=== PATIENT | female | born 1990 | race Caucasian/White ===

== ENCOUNTER 2016-05-29 08:31 | Inpatient (IN) | payer MEDICARE ==
[~2016-05-29] VITALS: Ht 167.6 cm; Wt 79.4 kg
[2016-05-29] MEDS: NACL 0.9% 1,000 ML IV SCH ×2 (08:30→17:42)
[2016-05-29 08:31] VITALS: BP_SYST 136
[2016-05-29] MEDS ORDERED: NACL 0.9% 1,000 ML IV ONE ×2 (08:49→10:30)
[2016-05-29] MEDS ORDERED: KETOROLAC TROMETHAMINE 30 MG VIAL IVP ONE (09:00)
[2016-05-29 09:07] LABS: BILIRUBIN,URINE NEGATIVE (NEGATIVE); BLOOD, URINE 1+ (NEGATIVE); CLARITY/URINE CLEAR (CLEAR); COLOR,URINE YELLOW (YELLOW); GLUCOSE,URINE NEGATIVE (NEGATIVE); KETONES,URINE NEGATIVE (NEGATIVE); LEUKOCYTE ESTERASE ,URINE NEGATIVE (NEGATIVE); NITRITE, URINE NEGATIVE (NEGATIVE); PH,URINE 6.5 (5.0-8.0); PROTEIN URINE NEGATIVE (NEGATIVE)
[2016-05-29 09:16] LABS: BACTERIA,URINE FEW /HPF (None Seen); RBC,URINE 0-3 /HPF (0-3); WBC,URINE 0-3 /HPF (0-3); YEAST,URINE None Seen /HPF (None Seen)
[2016-05-29 09:24] LABS: BASOPHILS # (AUTO) 0.3 K/uL (0.0-0.2); BASOPHILS % (AUTO) 2.6 % (0.0-2.0); EOSINOPHILS # (AUTO) 0.1 K/uL (0.0-0.4); EOSINOPHILS % (AUTO) 0.6 % (0.0-4.0); HEMATOCRIT 37.8 % (36-48); LYMPHOCYTES # (AUTO) 1.7 K/uL (1.0-5.5); LYMPHOCYTES % (AUTO) 14.9 % (20.5-51.5); MEAN CORPUSCULAR HEMOGLOBIN 31 pg (27-31); MEAN CORPUSCULAR HGB CONC 34 % (32-36); MEAN CORPUSCULAR VOLUME 90 fL (79.0-98.0); MONOCYTES # (AUTO) 0.6 K/uL (0.0-1.0); MONOCYTES % (AUTO) 5.1 % (1.7-9.3); NEUTROPHILS # (AUTO) 8.8 K/uL (1.8-7.7); NEUTROPHILS % (AUTO) 76.8 % (40.0-70.0); PLATELET COUNT (AUTO) 150 K/uL (130-430); RED BLOOD CELL COUNT(AUTO) 4.18 MIL/uL (4.2-6.2); RED CELL DISTRIBUTION WIDTH 12.2 % (9.0-15.0); WHITE BLOOD COUNT (AUTO) 11.5 K/uL (4.8-10.8)
[2016-05-29 09:38] LABS: PROTHROMBIN TIME 10.4 SECS (9.5-12.5)
[2016-05-29 09:45] LABS: CALCIUM 8.8 mg/dL (8.4-11.0); CREATININE 0.75 mg/dL (0.55-1.30); POTASSIUM 3.2 mmol/L (3.5-5.1); TOTAL BILIRUBIN 0.5 mg/dL (0.0-1.0); TOTAL PROTEIN, SERUM 7.7 g/dL (6.4-8.3)
[2016-05-29 09:46] LABS: ALBUMIN 3.9 g/dL (3.4-4.8)
[2016-05-29] MEDS ORDERED: LEVO125T8 PO (10:00)
[2016-05-29] MEDS ORDERED: ATEN-41 PO (10:00)
[2016-05-29] MEDS ORDERED: LISI2.5T48 PO (10:00)
[2016-05-29] MEDS ORDERED: FLUO40CA8 PO (10:00)
[2016-05-29] MEDS ORDERED: BUPR100T13 PO (10:00)
[2016-05-29] MEDS ORDERED: KCL 10 mEq in 50 mL (PREMIX) 50 ML IV ONE (10:00)
[2016-05-29] MEDS ORDERED: LORA-258 PO (10:00)
[2016-05-29] MEDS ORDERED: cefOXitin 1 GM IVPB PREMIX 50 ML IV ONE ×2 (10:30→11:31)
[2016-05-29] MEDS ORDERED: ONDANSETRON HCL 4 MG/2 ML VIAL IVP PRN ×2 (12:15→12:30)
[2016-05-29] MEDS ORDERED: HYDROmorphone 2 MG/ML VIAL IVP PRN ×3 (12:15→12:30)
[2016-05-29] MEDS ORDERED: LR 1,000 ML IV SCH (12:17)
[2016-05-29] MEDS ORDERED: KETOROLAC TROMETHAMINE 30 MG VIAL IVP PRN (12:30)
[2016-05-29] MEDS ORDERED: MEPERIDINE HCL/PF 25 MG/ML DISP.SYRIN IVP PRN ×2 (12:30)
[2016-05-29] MEDS ORDERED: HYDROmorphone 1 MG INJ. 1 MG/ML AMPUL IVP PRN (12:30)
[2016-05-29] MEDS ORDERED: HYDROmorphone 1 MG INJ. 1 MG/ML AMPUL ONE (13:21)
[2016-05-29] MEDS ORDERED: fentaNYL CITRATE 250 MCG/5 ML AMP ONE (14:00)
[2016-05-29] MEDS ORDERED: NS 1000 ML BAG IV ONE (14:00)
[2016-05-29] MEDS ORDERED: PROPOFOL 200MG/ 20ML VIAL (DIPRIVAN) IV ONE (14:00)
[2016-05-29] MEDS ORDERED: LR 1,000 ML IV.SOLN IV ONE (14:00)
[2016-05-29] MEDS ORDERED: KETOROLAC TROMETHAMINE 30 MG VIAL ONE (14:00)
[2016-05-29] MEDS ORDERED: MIDAZOLAM HCL 5 MG/5 ML VIAL ONE (14:00)
[2016-05-29] MEDS ORDERED: SEVOFLURANE 15 MIN GAS INH ONE (14:00)
[2016-05-29] MEDS ORDERED: ONDANSETRON HCL 4 MG/2 ML VIAL ONE (14:00)
[2016-05-29] MEDS ORDERED: BUPIVACAINE /EPINEPHRINE/PF 0.5% 30 ML VIAL INJ ONE (14:00)
[2016-05-29] MEDS ORDERED: ROCURONIUM BROMIDE 10 MG/ML (ZEMURON) ONE (14:00)
[2016-05-29 14:48] VITALS: BP_SYST 130
[2016-05-29 16:05] VITALS: BP_SYST 124
[2016-05-29 16:08] VITALS: BP_SYST 130
[2016-05-29 20:09] VITALS: BP_SYST 114
[2016-05-29 23:51] VITALS: BP_SYST 125
[2016-05-30 04:00] VITALS: BP_SYST 126
[2016-05-30 06:50] LABS: BASOPHILS % (AUTO) 0.2 % (0.0-2.0); EOSINOPHILS % (AUTO) 0.3 % (0.0-4.0); HEMATOCRIT 33.6 % (36-48); HEMOGLOBIN 11.4 g/dL (12.0-16.0); LYMPHOCYTES # (AUTO) 1.6 K/uL (1.0-5.5); LYMPHOCYTES % (AUTO) 16.7 % (20.5-51.5); MEAN CORPUSCULAR HEMOGLOBIN 31 pg (27-31); MEAN CORPUSCULAR HGB CONC 34 % (32-36); MEAN CORPUSCULAR VOLUME 92 fL (79.0-98.0); MONOCYTES # (AUTO) 0.7 K/uL (0.0-1.0); MONOCYTES % (AUTO) 6.8 % (1.7-9.3); NEUTROPHILS # (AUTO) 7.3 K/uL (1.8-7.7); PLATELET COUNT (AUTO) 135 K/uL (130-430); RED BLOOD CELL COUNT(AUTO) 3.66 MIL/uL (4.2-6.2); RED CELL DISTRIBUTION WIDTH 12.2 % (9.0-15.0); WHITE BLOOD COUNT (AUTO) 9.6 K/uL (4.8-10.8)
[2016-05-30 07:38] LABS: POTASSIUM 3.4 mmol/L (3.5-5.1)
[2016-05-30 07:39] LABS: ALBUMIN 3.4 g/dL (3.4-4.8); CALCIUM 8.5 mg/dL (8.4-11.0); CREATININE 0.66 mg/dL (0.55-1.30); TOTAL BILIRUBIN 0.5 mg/dL (0.0-1.0); TOTAL PROTEIN, SERUM 6.9 g/dL (6.4-8.3)
[2016-05-30] MEDS: NACL 0.9% 1,000 ML IV SCH ×2 (07:58→18:54)
[2016-05-30 08:00] VITALS: BP_SYST 134
[2016-05-30 11:34] VITALS: BP_SYST 136
[2016-05-30 11:37] VITALS: BP_SYST 124
[2016-05-30] MEDS ORDERED: HYDROcodone/ACETAMIN 5-325 MG TAB (NORCO/ VICODIN) PO PRN (14:00)
[2016-05-30 15:31] VITALS: BP_SYST 130
[2016-05-30 20:00] VITALS: BP_SYST 124
[2016-05-31] VITALS (7 sets, daily range): BP systolic 110–125
[2016-05-31] MEDS: NACL 0.9% 1,000 ML IV SCH ×2 (03:45→13:21)
== END 2016-05-31 21:45 | disposition home or self-care (01) | DRG 225 ==
LOC: SED 08:31 → SMU 11:25
PROVIDERS: ADMIT Specialist; ATTEND Specialist
PROC: 0DTJ4ZZ Resection of Appendix, Percutaneous Endoscopic Approach (ICD-10-PCS; principal; 2016-05-29 12:00)
DX: K35.80 Unspecified acute appendicitis (principal); K81.0 Acute cholecystitis; Z79.899 Other long term (current) drug therapy
CPT/HCPCS: 36415; 80053; 81000-TC; 81025; 83690-TC; 85025; 85610-TC; 85730-TC; 87070; 87070-TC; 87075-TC; 87081; 87186-TC; 88304; 94010; 96365; 96375; 99285; C1727; J0694; J1170; J1885; J1956; J2250; J2405; J2704; J3010; J3480; J3490; J7030; J7120